=== PATIENT | female | born 1975 | race African-American/Black ===

== ENCOUNTER 2017-07-10 09:52 | Inpatient (IN) | payer MEDICAID ==
[~2017-07-10] VITALS: Ht 147.3 cm; Wt 59.0 kg
[~2017-07-10 09:52] MED LIST: SEE MED SHEET
[2017-07-10] MEDS ORDERED: ONDANSETRON HCL 4MG/2ML VIAL IV STA (10:31)
[2017-07-10] MEDS ORDERED: MAGNESIUM/ALUMINUM HYDROXIDE/SIMETHICONE 30ML UDC PO STA (10:31)
[2017-07-10] MEDS ORDERED: PANTOPRAZOLE SODIUM 40 MG/VIAL IV STA (10:31)
[2017-07-10] MEDS ORDERED: FAMOTIDINE 20MG/2ML VIAL IV STA (10:31)
[2017-07-10] MEDS ORDERED: SODIUM CHLORIDE 0.9% 1,000 ML IV ONE (10:31)
[2017-07-10] MEDS ORDERED: MORPHINE SULFATE 4 MG/ML CPJ (NOT FOR IM USE) IV STA (10:31)
[2017-07-10 10:58] LABS: CLARITY URINE CLEAR (CLEAR); COLOR URINE YELLOW (YELLOW); GLUCOSE URINE NEGATIVE (NEGATIVE); KETONES URINE NEGATIVE (NEGATIVE); LEUKOCYTE ESTERASE URINE NEGATIVE (NEGATIVE); NITRITE URINE NEGATIVE (NEGATIVE); OCCULT BLOOD URINE 2+ (NEGATIVE); PROTEIN URINE NEGATIVE (NEGATIVE); SPECIFIC GRAVITY URINE 1.024 (1.005-1.030)
[2017-07-10 11:09] LABS: BASOPHILS % 0.9 % (0.0-2.0); EOSINOPHILS % 0.9 % (0.0-5.0); HEMATOCRIT. 37.4 % (36.0-48.0); HEMOGLOBIN. 12.4 g/dL (12.0-16.0); LYMPHOCYTES % 12.2 % (20.0-50.0); MEAN CORPUSCULAR HEMOGLOBIN 31.4 pg (28.0-32.0); MEAN CORPUSCULAR VOLUME 94.5 fL (81.0-99.0); MEAN PLATELET VOLUME 7.7 fl (7.4-10.4); MONOCYTES % 2.8 % (2.0-8.0); NEUTROPHILS % 83.2 % (40.0-76.0); PLATELET 401 x1000/uL (130-400); RED BLOOD CELL COUNT 3.96 mill/uL (4.2-5.4); RED CELL DISTRIBUTION WIDTH 14.7 % (11.6-14.6)
[2017-07-10 11:17] LABS: CHLORIDE 108 mEq/L (98-107)
[2017-07-10 11:18] LABS: PROTHROMBIN TIME 10.8 sec (9.4-11.6)
[2017-07-10 11:26] LABS: CARBON DIOXIDE 28 mEq/L (21-32)
[2017-07-10 12:04] LABS: HCG SCREEN NEGATIVE
[2017-07-10] MEDS ORDERED: DIPHENHYDRAMINE 50MG/ML VIAL IV ONE (14:15)
[2017-07-10] MEDS ORDERED: LEVOFLOXACIN 500MG PREMIX 100 ML IV ONE (14:15)
[2017-07-10] MEDS ORDERED: METRONIDAZOLE 500 MG PREMIX 100 ML IV ONE (14:15)
[2017-07-10] MEDS ORDERED: FENTANYL CITRATE/PF 50MCG/ML 2ML VIAL IV ONE (14:15)
[2017-07-10] MEDS ORDERED: METOCLOPRAMIDE HCL 10MG/2ML VIAL IV ONE (14:15)
[2017-07-10 17:45] VITALS: BP 98/58
[2017-07-10] MEDS ORDERED: ALBU6.7H INH (19:41)
[2017-07-10] MEDS ORDERED: ACET-2178 PO (19:41)
[2017-07-10] MEDS ORDERED: OMEP20CA10 PO (19:41)
[2017-07-10 20:00] VITALS: BP 100/57
[2017-07-10] MEDS ORDERED: ONDANSETRON HCL 4MG/2ML VIAL IV PRN (20:00)
[2017-07-10] MEDS ORDERED: IPRATROPIUM/ALBUTEROL 0.5-3(2.5)MG/3ML NEB INH PRN (20:00)
[2017-07-10] MEDS ORDERED: MAGNESIUM/ALUMINUM HYDROXIDE/SIMETHICONE 30ML UDC PO PRN (20:00)
[2017-07-10] MEDS ORDERED: DIPHENHYDRAMINE 50MG/ML VIAL IV PRN (20:00)
[2017-07-10] MEDS ORDERED: MORPHINE SULFATE 2 MG/ML CPJ (NOT FOR IM USE) IV PRN (20:00)
[2017-07-10] MEDS ORDERED: CLONIDINE 0.1MG TABLET PO PRN (20:00)
[2017-07-10] MEDS ORDERED: ALBUTEROL (0.083%) 2.5MG/3ML NEB HHN PRN (20:15)
[2017-07-10] MEDS: MORPHINE SULFATE 2 MG/ML CPJ (NOT FOR IM USE) IV PRN (20:30)
[2017-07-10] MEDS ORDERED: DEXT 5%/0.45% NACL KCL 20MEQ/L 1,000 ML IV SCH (22:00)
[2017-07-10] MEDS: DEXT 5%/0.45% NACL KCL 20MEQ/L 1,000 ML IV SCH (22:59)
[2017-07-10 23:41] LABS: TROPONIN I 0.03 ng/mL (0.00-0.04)
[2017-07-11] VITALS: BP 98/51
[2017-07-11] MEDS: HYDROCODONE/ACETAMINOPHEN 10/325MG TABLET PO PRN ×4 (02:24→16:39)
[2017-07-11 04:00] VITALS: BP 95/53
[2017-07-11 07:39] LABS: HEMATOCRIT 30.4 % (36.0-48.0); HEMOGLOBIN 10.2 g/dL (12.0-16.0); MEAN CORPUSCULAR HEMOGLOBIN 31.8 pg (28.0-32.0); MEAN CORPUSCULAR VOLUME 94.5 fL (81.0-99.0); PLATELET 284 x1000/uL (130-400); RED BLOOD CELL COUNT 3.21 mill/uL (4.2-5.4); RED CELL DISTRIBUTION WIDTH 14.5 % (11.6-14.6)
[2017-07-11 08:00] VITALS: BP 96/66
[2017-07-11 08:01] LABS: CARBON DIOXIDE 26 mEq/L (21-32); CREATINE KINASE 81 IU/L (26-192); HDL CHOLESTEROL 58 mg/dL (40-59); LDL CHOLESTEROL 50 mg/dL (5-100)
[2017-07-11 08:09] LABS: TROPONIN I 0.02 ng/mL (0.00-0.04)
[2017-07-11] MEDS: PANTOPRAZOLE SODIUM 40 MG/VIAL IV SCH (08:22)
[2017-07-11] MEDS: DEXT 5%/0.45% NACL KCL 20MEQ/L 1,000 ML IV SCH ×2 (08:24→16:40)
[2017-07-11 08:45] LABS: CHLORIDE 106 mEq/L (98-107)
[2017-07-11] MEDS ORDERED: OMEPRAZOLE 20MG CAPSULE EXTENDED RELEASE PO SCH (09:00)
[2017-07-11 11:08] LABS: *AMPHETAMINES SCREEN URINE NEGATIVE (NEGATIVE); *BARBITURATES SCREEN URINE NEGATIVE (NEGATIVE); *BENZODIAZEPINES SCREEN URINE NEGATIVE (NEGATIVE); *COCAINE SCREEN URINE NEGATIVE (NEGATIVE); METHADONE URINE SCREEN NEGATIVE (NEGATIVE); PHENCYCLIDINE URINE SCREEN NEGATIVE (NEGATIVE)
[2017-07-11 11:49] LABS: CANNABINOID URINE SCREEN PRESUMTIVE POSITIVE (NEGATIVE); OPIATES URINE SCREEN PRESUMTIVE POSITIVE (NEGATIVE)
[2017-07-11 12:00] VITALS: BP 113/66
[2017-07-11] MEDS: LEVOFLOXACIN 500MG PREMIX 100 ML IV SCH (15:11)
[2017-07-11 16:00] VITALS: BP 119/72
[2017-07-11] MEDS: ONDANSETRON HCL 4MG/2ML VIAL IV PRN (16:48)
[2017-07-11 20:00] VITALS: BP 128/65
[2017-07-11] MEDS: MORPHINE SULFATE 2 MG/ML CPJ (NOT FOR IM USE) IV PRN (22:17)
[2017-07-12] VITALS: BP 107/48
[2017-07-12] MEDS: HYDROCODONE/ACETAMINOPHEN 10/325MG TABLET PO PRN ×2 (00:33→06:50)
[2017-07-12] MEDS: ONDANSETRON HCL 4MG/2ML VIAL IV PRN ×4 (00:35→21:36)
[2017-07-12 04:00] VITALS: BP_SYST 120; BP_DIAS 60; BP_DIAS 66
[2017-07-12] MEDS: DEXT 5%/0.45% NACL KCL 20MEQ/L 1,000 ML IV SCH ×3 (06:45→18:29)
[2017-07-12 06:54] LABS: HEPATITIS B SURFACE ANTIGEN NEGATIVE
[2017-07-12 07:22] LABS: HEPATITIS B CORE AB IGM NEGATIVE
[2017-07-12 07:24] LABS: HEPATITIS A AB IGM NEGATIVE (NEGATIVE)
[2017-07-12 08:00] VITALS: BP 114/66
[2017-07-12] MEDS: PANTOPRAZOLE SODIUM 40 MG/VIAL IV SCH (09:44)
[2017-07-12 12:00] VITALS: BP 118/75
[2017-07-12] MEDS: MORPHINE SULFATE 2 MG/ML CPJ (NOT FOR IM USE) IV PRN ×3 (12:54→21:29)
[2017-07-12] MEDS: LEVOFLOXACIN 500MG PREMIX 100 ML IV SCH (14:20)
[2017-07-12 16:00] VITALS: BP 123/74
[2017-07-12] MEDS: DOCUSATE SODIUM 100MG CAPSULE PO SCH (18:29)
[2017-07-12 20:00] VITALS: BP 128/65
[2017-07-13] VITALS: BP 125/87
[2017-07-13] MEDS: DEXT 5%/0.45% NACL KCL 20MEQ/L 1,000 ML IV SCH ×3 (02:35→23:06)
[2017-07-13] MEDS: MORPHINE SULFATE 2 MG/ML CPJ (NOT FOR IM USE) IV PRN (02:36)
[2017-07-13] MEDS: ONDANSETRON HCL 4MG/2ML VIAL IV PRN ×4 (02:48→21:24)
[2017-07-13 04:00] VITALS: BP 127/76
[2017-07-13 08:00] VITALS: BP 108/52
[2017-07-13] MEDS: PANTOPRAZOLE SODIUM 40 MG/VIAL IV SCH (09:30)
[2017-07-13] MEDS: DOCUSATE SODIUM 100MG CAPSULE PO SCH ×2 (09:30→16:59)
[2017-07-13] MEDS: MORPHINE SULFATE 4 MG/ML CPJ (NOT FOR IM USE) IV PRN ×4 (09:31→23:06)
[2017-07-13 12:00] VITALS: BP 108/53
[2017-07-13] MEDS: LEVOFLOXACIN 500MG PREMIX 100 ML IV SCH (13:58)
[2017-07-13 16:00] VITALS: BP 130/65
[2017-07-13 20:00] VITALS: BP 99/46
[2017-07-14] VITALS: BP 104/71
[2017-07-14] MEDS: ONDANSETRON HCL 4MG/2ML VIAL IV PRN ×3 (03:19→21:04)
[2017-07-14] MEDS: MORPHINE SULFATE 4 MG/ML CPJ (NOT FOR IM USE) IV PRN ×5 (03:20→22:22)
[2017-07-14 04:00] VITALS: BP 104/71
[2017-07-14] MEDS: DOCUSATE SODIUM 100MG CAPSULE PO SCH ×2 (09:18→18:06)
[2017-07-14] MEDS: PANTOPRAZOLE SODIUM 40 MG/VIAL IV SCH ×2 (09:18→20:53)
[2017-07-14] MEDS: DEXT 5%/0.45% NACL KCL 20MEQ/L 1,000 ML IV SCH ×3 (11:00→19:02)
[2017-07-14] MEDS: LEVOFLOXACIN 500MG TABLET PO SCH (11:00)
[2017-07-14 12:00] VITALS: BP 100/75
[2017-07-14] MEDS: SUCRALFATE 1 G/10 ML UDC PO SCH ×3 (12:20→20:19)
[2017-07-14 15:03] LABS: HEMATOCRIT 32.9 % (36.0-48.0); HEMOGLOBIN 10.9 g/dL (12.0-16.0)
[2017-07-14 16:00] VITALS: BP 99/55
[2017-07-14 20:00] VITALS: BP 110/80
[2017-07-15] VITALS: BP 106/64
[2017-07-15] MEDS: DEXT 5%/0.45% NACL KCL 20MEQ/L 1,000 ML IV SCH ×3 (00:47→17:38)
[2017-07-15 04:00] VITALS: BP 131/63
[2017-07-15] MEDS: ONDANSETRON HCL 4MG/2ML VIAL IV PRN ×4 (04:30→23:35)
[2017-07-15] MEDS: MORPHINE SULFATE 4 MG/ML CPJ (NOT FOR IM USE) IV PRN ×5 (04:31→21:34)
[2017-07-15 06:58] LABS: HEMATOCRIT 31.6 % (36.0-48.0); HEMOGLOBIN 10.7 g/dL (12.0-16.0); MEAN CORPUSCULAR HEMOGLOBIN 31.8 pg (28.0-32.0); MEAN CORPUSCULAR VOLUME 93.5 fL (81.0-99.0); PLATELET 272 x1000/uL (130-400); RED BLOOD CELL COUNT 3.38 mill/uL (4.2-5.4); RED CELL DISTRIBUTION WIDTH 14.1 % (11.6-14.6)
[2017-07-15] MEDS: SUCRALFATE 1 G/10 ML UDC PO SCH ×4 (07:20→20:56)
[2017-07-15 07:29] LABS: INR 1.2; PROTHROMBIN TIME 12.2 sec (9.4-11.6)
[2017-07-15 08:00] VITALS: BP 103/67
[2017-07-15 08:18] LABS: CARBON DIOXIDE 28 mEq/L (21-32); CHLORIDE 106 mEq/L (98-107)
[2017-07-15] MEDS: PANTOPRAZOLE SODIUM 40 MG/VIAL IV SCH ×2 (08:23→20:56)
[2017-07-15] MEDS: DOCUSATE SODIUM 100MG CAPSULE PO SCH ×2 (09:00→17:24)
[2017-07-15] MEDS: LEVOFLOXACIN 500MG TABLET PO SCH (11:00)
[2017-07-15] MEDS ORDERED: SODIUM CHLORIDE 0.9% 10ML VIAL ONE (11:55)
[2017-07-15] MEDS ORDERED: SIMETHICONE 40 MG/0.6 ML 30ML ONE (11:55)
[2017-07-15 12:00] VITALS: BP 102/64
[2017-07-15] MEDS ORDERED: FENTANYL CITRATE/PF 50MCG/ML 2ML VIAL ONE (12:01)
[2017-07-15] MEDS ORDERED: MIDAZOLAM HCL 5 MG/5 ML VIAL ONE (12:01)
[2017-07-15 16:00] VITALS: BP 120/72
[2017-07-15 20:00] VITALS: BP 118/62
[2017-07-16] VITALS (7 sets, daily range): BP systolic 101–128; BP diastolic 62–77
[2017-07-16] MEDS: MORPHINE SULFATE 4 MG/ML CPJ (NOT FOR IM USE) IV PRN ×5 (01:32→19:16)
[2017-07-16] MEDS: DEXT 5%/0.45% NACL KCL 20MEQ/L 1,000 ML IV SCH ×2 (02:11→09:31)
[2017-07-16] MEDS: ONDANSETRON HCL 4MG/2ML VIAL IV PRN ×3 (05:37→19:16)
[2017-07-16] MEDS: SUCRALFATE 1 G/10 ML UDC PO SCH ×3 (06:38→19:19)
[2017-07-16] MEDS: DOCUSATE SODIUM 100MG CAPSULE PO SCH ×2 (08:34→19:19)
[2017-07-16] MEDS: PANTOPRAZOLE SODIUM 40 MG/VIAL IV SCH (08:34)
[2017-07-16] MEDS: LEVOFLOXACIN 500MG TABLET PO SCH (11:00)
== END 2017-07-16 20:05 | disposition home or self-care (01) | DRG 241 ==
LOC: ER 10:01 → 6EST 14:55 → ENRESERV 15:53
PROVIDERS: ADMIT Internal Medicine; ATTEND Internal Medicine
PROC: 0DB68ZX Excision of Stomach, Via Natural or Artificial Opening Endoscopic, Diagnostic (ICD-10-PCS; principal; 2017-07-15 12:00)
DX: K29.70 Gastritis, unspecified, without bleeding (principal); K80.70 Calculus of gallbladder and bile duct without cholecystitis without obstruction; N39.0 Urinary tract infection, site not specified; D64.9 Anemia, unspecified; J45.909 Unspecified asthma, uncomplicated; K57.30 Diverticulosis of large intestine without perforation or abscess without bleeding; K21.9 Gastro-esophageal reflux disease without esophagitis; F41.9 Anxiety disorder, unspecified; Z60.2 Problems related to living alone; F17.210 Nicotine dependence, cigarettes, uncomplicated; Z98.891 History of uterine scar from previous surgery; Z79.899 Other long term (current) drug therapy
CPT/HCPCS: 36415; 74176; 76700; 78227; 80048; 80053; 80061; 80305; 81001; 81025; 82550; 83690; 84443; 84484; 84703; 85014; 85018; 85025; 85027; 85610; 85730; 86705; 86709; 86803; 87040; 87340; 88305; 88312; 88313; 96361; 96365; 96366; 96368; 96375; 99285; A4216; A9537; C9113; J1200; J1956; J2250; J2270; J2405; J2765; J3010; J3490; J7030

== ENCOUNTER 2018-02-25 08:06 | Inpatient (IN) | payer MEDICAID ==
[~2018-02-25] VITALS: Ht 289.6 cm; Wt 57.6 kg
[~2018-02-25 08:06] MED LIST changes: +ACET-2178 PO; +ALBU6.7H INH; +OMEP20CA10 PO
[2018-02-25] MEDS ORDERED: SODIUM CHLORIDE 0.9% 1,000 ML IV ONE (09:35)
[2018-02-25] MEDS ORDERED: MORPHINE SULFATE 4 MG/ML CPJ (NOT FOR IM USE) IV STA (09:35)
[2018-02-25] MEDS ORDERED: ONDANSETRON HCL 4MG/2ML VIAL IV STA (09:35)
[2018-02-25] MEDS ORDERED: PANTOPRAZOLE SODIUM 40 MG/VIAL IV STA (09:41)
[2018-02-25 10:00] LABS: BASOPHILS % 0.5 % (0.0-2.0); EOSINOPHILS % 1.6 % (0.0-5.0); HEMATOCRIT. 36.4 % (36.0-48.0); LYMPHOCYTES % 14.5 % (20.0-50.0); MEAN CORPUSCULAR HEMOGLOBIN 31.1 pg (28.0-32.0); MONOCYTES % 3.8 % (2.0-8.0); NEUTROPHILS % 79.6 % (40.0-76.0); PLATELET 279 x1000/uL (130-400); RED BLOOD CELL COUNT 3.87 mill/uL (4.2-5.4); RED CELL DISTRIBUTION WIDTH 15.1 % (11.6-14.6)
[2018-02-25 10:05] LABS: CHLORIDE 108 mEq/L (98-107)
[2018-02-25 10:06] LABS: PROTHROMBIN TIME 10.8 sec (9.4-11.6)
[2018-02-25 10:11] LABS: CLARITY URINE CLOUDY (CLEAR); COLOR URINE YELLOW (YELLOW); KETONES URINE NEGATIVE (NEGATIVE); LEUKOCYTE ESTERASE URINE NEGATIVE (NEGATIVE); NITRITE URINE NEGATIVE (NEGATIVE); OCCULT BLOOD URINE NEGATIVE (NEGATIVE); PROTEIN URINE NEGATIVE (NEGATIVE); SPECIFIC GRAVITY URINE 1.021 (1.005-1.030); UROBILINOGEN URINE 0.2 E.U./dL (0.2-1.0)
[2018-02-25 10:15] LABS: HCG SCREEN NEGATIVE
[2018-02-25] MEDS ORDERED: FAMOTIDINE 20MG/2ML VIAL IV STA (11:09)
[2018-02-25] MEDS ORDERED: VISCOUS LIDOCAINE 2% 15 ML UDC PO STA (11:09)
[2018-02-25] MEDS ORDERED: DICYCLOMINE 10 MG/5 ML ORAL SYR PO STA (11:09)
[2018-02-25] MEDS ORDERED: MAGNESIUM/ALUMINUM HYDROXIDE/SIMETHICONE 30ML UDC PO STA (11:09)
[2018-02-25] MEDS ORDERED: CEFTRIAXONE 1 G PREMIX 50 ML IV ONE (11:15)
[2018-02-25] MEDS ORDERED: KETOROLAC 30MG/ML VIAL IV ONE (11:15)
[2018-02-25] MEDS ORDERED: PROT20 PO (19:54)
[2018-02-25 20:00] VITALS: BP_SYST 101; BP_SYST 104; BP_DIAS 56
[2018-02-25] MEDS: MORPHINE SULFATE 4 MG/ML CPJ (NOT FOR IM USE) IV PRN (20:30)
[2018-02-25] MEDS: ONDANSETRON HCL 4MG/2ML VIAL IV PRN (20:30)
[2018-02-26] VITALS: BP 106/60
[2018-02-26] MEDS: ONDANSETRON HCL 4MG/2ML VIAL IV PRN ×3 (02:18→20:10)
[2018-02-26] MEDS: MORPHINE SULFATE 4 MG/ML CPJ (NOT FOR IM USE) IV PRN ×6 (02:19→22:09)
[2018-02-26 04:00] VITALS: BP 112/72
[2018-02-26 06:55] LABS: BASOPHILS % 0.7 % (0.0-2.0); EOSINOPHILS % 1.9 % (0.0-5.0); HEMATOCRIT. 33.5 % (36.0-48.0); LYMPHOCYTES % 33.2 % (20.0-50.0); MEAN CORPUSCULAR HEMOGLOBIN 30.9 pg (28.0-32.0); MEAN CORPUSCULAR VOLUME 94.3 fL (81.0-99.0); MEAN PLATELET VOLUME 8.5 fl (7.4-10.4); MONOCYTES % 6.2 % (2.0-8.0); PLATELET 245 x1000/uL (130-400); RED BLOOD CELL COUNT 3.55 mill/uL (4.2-5.4); RED CELL DISTRIBUTION WIDTH 14.6 % (11.6-14.6)
[2018-02-26] MEDS ORDERED: OMEPRAZOLE 20MG CAPSULE EXTENDED RELEASE PO SCH (07:20)
[2018-02-26 07:35] LABS: CHLORIDE 107 mEq/L (98-107)
[2018-02-26 08:00] VITALS: BP 108/65
[2018-02-26 12:00] VITALS: BP 118/63
[2018-02-26 16:00] VITALS: BP 114/68
[2018-02-26 20:00] VITALS: BP 111/54
[2018-02-26] MEDS: SUCRALFATE 1 G/10 ML UDC PO SCH (20:10)
[2018-02-26 21:50] LABS: *AMPHETAMINES SCREEN URINE NEGATIVE (NEGATIVE); *BARBITURATES SCREEN URINE NEGATIVE (NEGATIVE); *BENZODIAZEPINES SCREEN URINE NEGATIVE (NEGATIVE); *COCAINE SCREEN URINE NEGATIVE (NEGATIVE); METHADONE URINE SCREEN NEGATIVE (NEGATIVE); PHENCYCLIDINE URINE SCREEN NEGATIVE (NEGATIVE)
[2018-02-26 22:24] LABS: CANNABINOID URINE SCREEN PRESUMTIVE POSITIVE (NEGATIVE); OPIATES URINE SCREEN PRESUMTIVE POSITIVE (NEGATIVE)
[2018-02-27] VITALS: BP 113/61
[2018-02-27] MEDS: ONDANSETRON HCL 4MG/2ML VIAL IV PRN ×4 (02:00→21:39)
[2018-02-27] MEDS: MORPHINE SULFATE 4 MG/ML CPJ (NOT FOR IM USE) IV PRN ×5 (02:01→21:39)
[2018-02-27 04:00] VITALS: BP 110/50
[2018-02-27 08:00] VITALS: BP 116/64
[2018-02-27] MEDS: PANTOPRAZOLE SODIUM 40 MG/VIAL IV SCH (08:42)
[2018-02-27] MEDS: SUCRALFATE 1 G/10 ML UDC PO SCH ×4 (08:42→21:38)
[2018-02-27] MEDS ORDERED: ALPRAZOLAM 0.5 MG TABLET PO PRN (11:45)
[2018-02-27 12:00] VITALS: BP 136/62
[2018-02-27 15:46] VITALS: BP 139/82
[2018-02-27 20:00] VITALS: BP 122/69
[2018-02-28] VITALS: BP 104/49
[2018-02-28] MEDS: MORPHINE SULFATE 4 MG/ML CPJ (NOT FOR IM USE) IV PRN ×5 (02:04→21:13)
[2018-02-28] MEDS: ONDANSETRON HCL 4MG/2ML VIAL IV PRN ×4 (03:56→23:29)
[2018-02-28 04:00] VITALS: BP 113/62
[2018-02-28] MEDS: SUCRALFATE 1 G/10 ML UDC PO SCH ×4 (06:52→23:29)
[2018-02-28 08:00] VITALS: BP 111/65
[2018-02-28] MEDS: PANTOPRAZOLE SODIUM 40 MG/VIAL IV SCH (08:21)
[2018-02-28 12:00] VITALS: BP 112/60
[2018-02-28 16:00] VITALS: BP 117/66
[2018-02-28 20:00] VITALS: BP 99/57
[2018-03-01] VITALS: BP 101/52
[2018-03-01] MEDS: MORPHINE SULFATE 4 MG/ML CPJ (NOT FOR IM USE) IV PRN ×2 (03:25→09:26)
[2018-03-01 04:00] VITALS: BP 97/56
[2018-03-01] MEDS: SUCRALFATE 1 G/10 ML UDC PO SCH (06:02)
[2018-03-01 07:27] LABS: HEMATOCRIT 36.3 % (36.0-48.0); HEMOGLOBIN 12.4 g/dL (12.0-16.0)
[2018-03-01] MEDS: PANTOPRAZOLE SODIUM 40 MG/VIAL IV SCH (09:26)
[2018-03-01 11:45] VITALS: BP 107/69
== END 2018-03-01 13:28 | disposition home or self-care (01) | DRG 241 ==
LOC: ER 11:14 → 6EST 13:43 → OBSVTOIN 13:43 → EDBEDREQ 13:53 → ENRESERV 16:32
PROVIDERS: ADMIT Internal Medicine; ATTEND Internal Medicine
DX: K29.70 Gastritis, unspecified, without bleeding (principal); E87.8 Other disorders of electrolyte and fluid balance, not elsewhere classified; K21.9 Gastro-esophageal reflux disease without esophagitis; D64.9 Anemia, unspecified; J45.909 Unspecified asthma, uncomplicated; F41.9 Anxiety disorder, unspecified; K57.30 Diverticulosis of large intestine without perforation or abscess without bleeding; K80.20 Calculus of gallbladder without cholecystitis without obstruction; Z87.891 Personal history of nicotine dependence; Z98.891 History of uterine scar from previous surgery; Z79.1 Long term (current) use of non-steroidal anti-inflammatories (NSAID); Z79.51 Long term (current) use of inhaled steroids; Z79.899 Other long term (current) drug therapy
CPT/HCPCS: 36415; 74176; 76700; 80048; 80053; 80305; 81003; 83690; 84703; 85014; 85018; 85025; 85610; C1893; C9113; G0378; J0696; J1885; J2270; J2405; J3490; J7030

== ENCOUNTER 2018-03-12 08:21 | Emergency (ER) | payer MEDICAID ==
[~2018-03-12] VITALS: Ht 147.3 cm; Wt 58.0 kg
[~2018-03-12 08:21] MED LIST changes: -ACET-2178 PO; -OMEP20CA10 PO; +PROT20 PO; -SEE MED SHEET
[2018-03-12] MEDS ORDERED: SODIUM CHLORIDE 0.9% 1,000 ML IV ONE (09:10)
[2018-03-12] MEDS ORDERED: MORPHINE SULFATE 4 MG/ML CPJ (NOT FOR IM USE) IV STA (09:10)
[2018-03-12] MEDS ORDERED: PANTOPRAZOLE SODIUM 40 MG/VIAL IV STA (09:10)
[2018-03-12] MEDS ORDERED: ONDANSETRON HCL 4MG/2ML VIAL IV STA (09:10)
[2018-03-12 09:41] LABS: CLARITY URINE CLEAR (CLEAR); COLOR URINE YELLOW (YELLOW); KETONES URINE TRACE (NEGATIVE); LEUKOCYTE ESTERASE URINE NEGATIVE (NEGATIVE); NITRITE URINE NEGATIVE (NEGATIVE); OCCULT BLOOD URINE NEGATIVE (NEGATIVE); PROTEIN URINE NEGATIVE (NEGATIVE); SPECIFIC GRAVITY URINE 1.021 (1.005-1.030); UROBILINOGEN URINE 0.2 E.U./dL (0.2-1.0)
[2018-03-12 09:46] LABS: BASOPHILS % 0.4 % (0.0-2.0); EOSINOPHILS % 0.1 % (0.0-5.0); HEMATOCRIT. 40.2 % (36.0-48.0); HEMOGLOBIN. 13.4 g/dL (12.0-16.0); LYMPHOCYTES % 9.9 % (20.0-50.0); MEAN CORPUSCULAR HEMOGLOBIN 31.3 pg (28.0-32.0); MEAN CORPUSCULAR VOLUME 93.7 fL (81.0-99.0); MEAN PLATELET VOLUME 7.9 fl (7.4-10.4); MONOCYTES % 1.5 % (2.0-8.0); NEUTROPHILS % 88.1 % (40.0-76.0); PLATELET 325 x1000/uL (130-400); RED BLOOD CELL COUNT 4.29 mill/uL (4.2-5.4)
[2018-03-12 09:49] LABS: CHLORIDE 105 mEq/L (98-107); PROTHROMBIN TIME 10.8 sec (9.4-11.6)
[2018-03-12 10:17] LABS: HCG SCREEN NEGATIVE
[2018-03-12 12:25] VITALS: BP 100/48
== END 2018-03-12 13:13 | disposition home or self-care (01) ==
LOC: ER 08:42
DX: K80.20 Calculus of gallbladder without cholecystitis without obstruction (principal); K29.70 Gastritis, unspecified, without bleeding; K21.9 Gastro-esophageal reflux disease without esophagitis; F41.9 Anxiety disorder, unspecified; J45.909 Unspecified asthma, uncomplicated; F12.10 Cannabis abuse, uncomplicated; Z98.890 Other specified postprocedural states; Z87.891 Personal history of nicotine dependence
CPT/HCPCS: 36415; 76705; 80053; 81003; 83605; 83690; 84703; 85025; 85610; 96361; 96374; 96375; 99285; C9113; J2270; J2405; J7030

== ENCOUNTER 2018-05-06 15:21 | Emergency (ER) | payer MEDICAID ==
[~2018-05-06] VITALS: Ht 149.9 cm; Wt 60.0 kg
[2018-05-06] MEDS ORDERED: SODIUM CHLORIDE 0.9% 1,000 ML IV ONE (16:00)
[2018-05-06] MEDS ORDERED: FAMOTIDINE 20MG/2ML VIAL IV ONE (16:00)
[2018-05-06] MEDS ORDERED: MORPHINE SULFATE 4 MG/ML CPJ (NOT FOR IM USE) IV ONE (16:00)
[2018-05-06] MEDS ORDERED: ONDANSETRON HCL 4MG/2ML VIAL IV ONE (16:00)
[2018-05-06 16:28] LABS: BASOPHILS % 0.6 % (0.0-2.0); HEMATOCRIT. 37.6 % (36.0-48.0); HEMOGLOBIN. 12.5 g/dL (12.0-16.0); LYMPHOCYTES % 8.9 % (20.0-50.0); MEAN CORPUSCULAR HEMOGLOBIN 31.2 pg (28.0-32.0); MEAN PLATELET VOLUME 8.1 fl (7.4-10.4); MONOCYTES % 1.6 % (2.0-8.0); NEUTROPHILS % 88.9 % (40.0-76.0); PLATELET 297 x1000/uL (130-400); RED CELL DISTRIBUTION WIDTH 14.1 % (11.6-14.6)
[2018-05-06 16:30] LABS: CHLORIDE 109 mEq/L (98-107)
[2018-05-06 18:42] VITALS: BP 108/59
== END 2018-05-06 18:47 | disposition home or self-care (01) ==
LOC: ER 15:21
DX: K82.4 Cholesterolosis of gallbladder (principal); J45.909 Unspecified asthma, uncomplicated; F17.210 Nicotine dependence, cigarettes, uncomplicated; F12.10 Cannabis abuse, uncomplicated
CPT/HCPCS: 36415; 76705; 80053; 81025; 85025; 96361; 96374; 96375; 99285; J2270; J2405; J3490; J7030; Z7610

== ENCOUNTER 2018-11-12 09:27 | Emergency (ER) | payer MEDICAID ==
[~2018-11-12] VITALS: Ht 147.3 cm; Wt 57.0 kg
[2018-11-12 11:26] VITALS: BP 138/87
== END 2018-11-12 11:27 | disposition home or self-care (01) ==
LOC: ER 09:27
DX: M79.631 Pain in right forearm (principal); F41.9 Anxiety disorder, unspecified; J45.909 Unspecified asthma, uncomplicated; K21.9 Gastro-esophageal reflux disease without esophagitis; F12.10 Cannabis abuse, uncomplicated; Z98.890 Other specified postprocedural states
CPT/HCPCS: 99282

== ENCOUNTER 2019-01-02 20:34 | Emergency (ER) | payer MEDICAID ==
[~2019-01-02] VITALS: Ht 165.1 cm; Wt 61.0 kg
[2019-01-03 04:31] VITALS: BP 123/73
== END 2019-01-03 01:08 | disposition home or self-care (01) ==
LOC: ER 20:34
DX: B34.9 Viral infection, unspecified (principal); K21.9 Gastro-esophageal reflux disease without esophagitis; F41.9 Anxiety disorder, unspecified; J45.909 Unspecified asthma, uncomplicated; F17.210 Nicotine dependence, cigarettes, uncomplicated; Z98.890 Other specified postprocedural states
CPT/HCPCS: 71045; 93005; 99283